=== PATIENT | female | born 1990 | race Caucasian/White ===

== ENCOUNTER 2021-08-05 13:51 | Emergency (ER) | payer OTHER ==
[~2021-08-05] VITALS: Ht 162.6 cm; Wt 49.4 kg
[~2021-08-05 13:51] MED LIST: HYDROCORTISONE30 G9 RECTAL; KEFLEX500 M1 PO; MULTIVITAMINS1 EAC7 PO; NAPROSYN500 MG PO; NORCO 5-325 TA1 EACH PO; TRAMADOL 50 MG50 MG PO; TRI-SPRINTEC1 EACH PO
[2021-08-05 14:14] LABS: ABSOLUTE BASOPHILS 0.1 thou/uL (0.0-0.2); ABSOLUTE LYMPHOCYTES 2.8 thou/uL (0.8-5.3); ABSOLUTE MONOCYTES 0.7 thou/uL (0.0-1.2); ABSOLUTE NEUTROPHILS 4.4 thou/uL (1.6-8.1); BASOPHILS 0.9 %; EOSINOPHILS 0.2 %; HEMATOCRIT 42.3 % (37.0-47.0); HEMOGLOBIN 14.4 gm/dL (12.0-15.0); LYMPHOCYTES 34.7 %; MCH 30.9 pg (26.0-34.0); MCV 90.8 fL (80.0-100.0); MONOCYTES 9.1 %; MPV 6.4 fl. (7.2-11.1); NUCLEATED RBCS 0 /100WBC; PLATELET COUNT* 361 thou/uL (150-400); POLYS 55.1 %; RBC 4.66 mil/uL (4.20-5.00); RDW-CV 14.5 % (10.5-14.5); WBC 7.9 thou/uL (4.0-11.0)
[2021-08-05 14:23] LABS: CALCIUM 8.3 mg/dL (8.5-10.1); POTASSIUM 3.8 mmol/L (3.5-5.1)
[2021-08-05 14:28] LABS: ALBUMIN 4.4 g/dL (3.4-5.0); APTT 26.8 Seconds (25.0-31.3); TOTAL BILIRUBIN 0.9 mg/dL (<0.1-1.0); TOTAL PROTEIN 7.5 g/dL (6.4-8.2)
[2021-08-05 14:43] LABS: SALICYLATE < 2.8 mg/dL (2.8-20.0)
[2021-08-05 14:44] LABS: ACETAMINOPHEN < 2 ug/mL (10-30)
[2021-08-05 14:45] LABS: ALCOHOL 487 mg/dL (<10)
[2021-08-05] MEDS ORDERED: ATIVAN1 M1 PO (18:03)
[2021-08-05] MEDS ORDERED: PEPCID40 MG PO (18:03)
[2021-08-05] MEDS ORDERED: ZOFRAN ODT4 MG DISSOLVE (18:03)
[2021-08-05 18:05] VITALS: BP 141/70
== END 2021-08-05 18:06 | disposition home or self-care (01) ==
LOC: M.ERS 13:51
PROVIDERS: Family Medicine
DX: R10.9 Unspecified abdominal pain (principal); F10.920 Alcohol use, unspecified with intoxication, uncomplicated; K92.0 Hematemesis; K92.1 Melena; F17.210 Nicotine dependence, cigarettes, uncomplicated; Z88.1 Allergy status to other antibiotic agents; Y90.8 Blood alcohol level of 240 mg/100 ml or more

== ENCOUNTER 2021-08-12 12:43 | Emergency (ER) | payer OTHER ==
[~2021-08-12] VITALS: Ht 162.6 cm; Wt 52.2 kg
[~2021-08-12 12:43] MED LIST changes: +ATIVAN1 M1 PO; +PEPCID40 MG PO; +ZOFRAN ODT4 MG DISSOLVE
[2021-08-12] MEDS ORDERED: LEXAPRO 10 MG T10 M2 PO (12:58)
[2021-08-12 14:01] LABS: URINE BILIRUBIN NEGATIVE (Negative); URINE BLOOD NEGATIVE (Negative); URINE CLARITY CLEAR; URINE COLOR YELLOW; URINE GLUCOSE-RANDOM NEGATIVE (Negative); URINE KETONES NEGATIVE (Negative); URINE LEUKOCYTES NEGATIVE (Negative); URINE NITRITE NEGATIVE (Negative); URINE PROTEIN NEGATIVE (Negative); URINE SPECIFIC GRAVITY 1.015 (1.005-1.030); URINE UROBILINOGEN 0.2 E.U./dl (0.2-1.0)
[2021-08-12 14:59] VITALS: BP 128/70
== END 2021-08-12 15:00 | disposition home or self-care (01) ==
LOC: M.ERS 12:43
PROVIDERS: Physician Assistant
DX: S06.0X0A Concussion without loss of consciousness, initial encounter (principal); R11.2 Nausea with vomiting, unspecified; F17.210 Nicotine dependence, cigarettes, uncomplicated; Z79.899 Other long term (current) drug therapy; Z88.1 Allergy status to other antibiotic agents; W22.01XA Walked into wall, initial encounter; Y93.89 Activity, other specified; Y92.89 Other specified places as the place of occurrence of the external cause; Y99.8 Other external cause status